=== PATIENT | female | born 2000 | race Caucasian/White ===

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

== ENCOUNTER 2019-03-29 15:55 | Emergency (ER) | payer MEDICAID, OTHER ==
[~2019-03-29] VITALS: Ht 154.9 cm; Wt 53.5 kg
[~2019-03-29 15:55] MED LIST: DOXY100T2 PO
[2019-03-29 16:43] LABS: BASOPHILS % (AUTO) 0.3 % (0.0-2.0); EOSINOPHILS % (AUTO) 0.2 % (0.0-4.0); HEMATOCRIT 39.7 % (36-48); HEMOGLOBIN 12.7 g/dL (12.0-16.0); LYMPHOCYTES # (AUTO) 2.4 K/uL (1.0-5.5); LYMPHOCYTES % (AUTO) 16.1 % (20.5-51.5); MEAN CORPUSCULAR HEMOGLOBIN 28 pg (27-31); MEAN CORPUSCULAR HGB CONC 32 % (32-36); MEAN CORPUSCULAR VOLUME 89 fL (79.0-98.0); MONOCYTES # (AUTO) 1.3 K/uL (0.0-1.0); MONOCYTES % (AUTO) 8.8 % (1.7-9.3); NEUTROPHILS % (AUTO) 74.6 % (40.0-70.0); PLATELET COUNT (AUTO) 211 K/uL (130-430); RED BLOOD CELL COUNT(AUTO) 4.49 MIL/uL (4.2-6.2); RED CELL DISTRIBUTION WIDTH 12.8 % (9.0-15.0); WHITE BLOOD COUNT (AUTO) 14.7 K/uL (4.5-11.0)
[2019-03-29 16:44] VITALS: BP_SYST 120
[2019-03-29 16:47] LABS: CALCIUM 9.2 mg/dL (8.4-11.0); CREATININE 0.53 mg/dL (0.55-1.30); POTASSIUM 3.1 mmol/L (3.5-5.1)
[2019-03-29 16:53] LABS: ALBUMIN 3.9 g/dL (3.4-4.8); TOTAL BILIRUBIN 0.5 mg/dL (0.0-1.0)
--- NOTE | 2019-03-29 23:00 | NUR ---
Patient to ER bed 5 to gown for evaluation. Side rails up. Report given to Rosi SALCEDO.
--- NOTE | 2019-03-29 23:32 | NUR ---
Patient brought in complaining of lower abdominal pain with bloating and pelvic pain since yesterday. 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 Reports nausea but denies any vomiting or diarrhea. Pain 07/20. Mother at bedside. No other complaints/injuries per patient or as noted. Will continue to monitor.
[2019-03-29] MEDS ORDERED: HYDROcodone/ACETAMIN 5-325 MG TAB (NORCO/ VICODIN) PO ONE (23:45)
--- NOTE | 2019-03-30 00:38 | NUR ---
PAtient off unit to ultrasound.
--- NOTE | 2019-03-30 01:43 | NUR ---
Medicated per Md orders. PAtient tolerated well.
[2019-03-30] MEDS ORDERED: HYDROcodone/ACETAMIN 5-325 MG TAB (NORCO/ VICODIN) ONE (01:54)
--- NOTE | 2019-03-30 02:34 | NUR ---
Pelvic exam performed by Dr. Tom with myself at bedside for entire examination. Patient tolerated procedure well. Patient assisted to position of comfort after examination. wet mount sent to lab
[2019-03-30] MEDS ORDERED: AZITHROMYCIN 250 MG TABLET PO ONE (02:45)
[2019-03-30] MEDS ORDERED: cefTRIAXone 0.75 GM in LIDOCAINE 1%, 20 ML MDV 2.1 ML IM ONE (02:45)
[2019-03-30] MEDS ORDERED: POTASSIUM CHLORIDE 20 MEQ TAB.PRT.SR PO ONE (02:45)
--- NOTE | 2019-03-30 04:25 | NUR ---
Patient given written and verbal discharge instructions and verbalizes understanding. ER MD discussed with patient the results and treatment provided. Patient in stable condition. ID arm band removed. Rx of motrin and doxicycline given. Patient educated on pain management and to follow up with PMD. Pain Scale 3/10. Opportunity for questions provided and answered. Medication side effect fact sheet provided.
[2019-03-30 04:27] VITALS: BP_SYST 121
== END 2019-03-30 04:27 | disposition home or self-care (01) ==
LOC: SED 15:55
DX: N73.9 Female pelvic inflammatory disease, unspecified (principal)
CPT/HCPCS: 36415; 76830; 76857; 80053; 81025; 84702; 85025; 87210; 96372; 99284; J0696; J2001; Q0144